=== PATIENT | female | born 1985 ===

== ENCOUNTER 2017-10-08 09:25 | Emergency (ER) | payer OTHER ==
[2017-10-08 09:33] VITALS: BMI 29.9
[2017-10-08 09:34] VITALS: TEMP 98.2
[2017-10-08 09:56] VITALS: O2SAT 100
[2017-10-08 10:57] LABS: SQUAMOUS EPITHIAL 1 /hpf (0-5); URINE BILIRUBIN NEGATIVE (NEGATIVE); URINE BLOOD MODERATE (NEGATIVE); URINE CLARITY CLEAR (Clear); URINE COLOR STRAW (YELLOW); URINE GLUCOSE (UA) NEG (Normal); URINE LEUKOCYTE ESTERASE NEG Leu/uL (Negative); URINE PROTEIN NEGATIVE (NEGATIVE); URINE UROBILINOGEN 0.2-1.0 mg/dL (0.2-1.0)
[2017-10-08] MEDS ORDERED: cefTRIAXone (Rocephin) 250 mg Inj IM ONE (11:00)
[2017-10-08] MEDS ORDERED: Azithromycin 200 mg/5 ml Susp (22.5 ml) PO STA (11:00)
--- NOTE | 2017-10-08 11:09 | ED PDOC ---
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 Also concerned for . LMP september 22, regular. Notes some mild nausea but denies back pain, fever, vaginal bleeding or vomiting/diarrhea. No DOCK ASSOCIATE care for last year+. Past Medical History Reviewed: Historical Data, Nursing Documentation, Vital Signs Vital Signs: Last Vital Signs Temp 98.2 F 10/08/17 09:52 Pulse 62 10/08/17 09:52 Resp 18 10/08/17 09:52 BP 131/73 10/08/17 09:52 Pulse Ox 100 10/08/17 09:52 - Medical History PMH: No Chronic Diseases Denies: Chronic Kidney Disease - Surgical History Surgical History: No Surg Hx - Family History Family History: States: Unknown Family Hx - Home Medications Home Medications: Ambulatory Orders Medication Instructions Recorded Nitrofurantoin Macrocrystals 100 mg PO BID #10 cap 10/08/17 [Macrobid] Phenazopyridine HCl [Pyridium] 100 mg PO BID #6 tablet 10/08/17 - Allergies Allergies/Adverse Reactions: Allergies Allergy/AdvReac Type Severity Reaction Status Date / Time No Known Allergies Allergy Verified 10/08/17 10:09 Physical Exam - Physical Exam Appears: Positive for: Well, Non-toxic Head Exam: Positive for: ATRAUMATIC Cardiovascular/Chest: Negative for: Tachycardia Respiratory: Negative for: Respiratory Distress Gastrointestinal/Abdominal: Negative for: Tenderness, Guarding Pelvic Exam: Positive for: External Exam Normal, Cervicitis, Discharge (white at cervix), Tender Uterus (minimal). Negative for: Tender W/Cervical Motion - ECG O2 Sat by Pulse Oximetry: 100 Medical Decision Making Medical Decision Making: workup for pelvic discomfort r/o , UTI, STDs, PID vs other Upreg neg Udip + blood pelvic w process tech Kate after procedure explained via earth science technical officer cultures obtained treat empirically given symptoms and discharge on exam followup cultures, abstain from sex until tests return empiric macrobid and pyridium given dysuria until culture returns Disposition - Clinical Impression Clinical Impression: Genitourinary Pain - Patient ED Disposition Is Patient to be Admitted: No Counseled Patient/Family Regarding: Studies Performed (explained in malagasy via earth science technical officer mike DAY), Diagnosis, Need For Followup, Rx Given - Disposition [facility] Disposition: Routine/Home Disposition Time: 11:15 Condition: STABLE Additional Instructions: You were checked for pelvic infections including sexually transmitted diseases chlamydia and gonorrhea. You were treated empirically. Test results will be back in 2-3 days and you will be called if positive. Followup with DOCK ASSOCIATE for further testing and evaluation. TAKE ANTIBIOTICS DIRECTED BY MOUTH. YOUR URINE WILL TURN ORANGE COLOR FOR 4- 5 DAYS DUE TO PYRIDIUM. Usted fue revisado por infecciones plvicas, incluidas las enfermedades de transmisin sexual clamidia y gonorrea. Fuiste tratado empricamente. Los resultados de la prueba volvern en 2-3 canchola y se te llamar si es positivo. Seguimiento con DOCK ASSOCIATE para ms pruebas y evaluacin. TOME ANTIBITICOS SEGN LO INDICA LA BOCA. BAUTISTA ORINA GIRAR COLOR NARANJA JN 4-5 CANCHOLA DEBIDO AL PIRIDIO. Prescriptions: Ciprofloxacin [Cipro] 500 mg PO BID #10 tab Phenazopyridine HCl [Pyridium] 100 mg PO BID #6 tablet Instructions: Vaginal Discharge in Adults, Urethritis (DC) Forms: [facility] (Libyan)
[2017-10-08] MEDS ORDERED: cefTRIAXone (Rocephin) 250 mg Inj ONE (11:31)
[2017-10-08 12:05] VITALS: BP 115/68; PULSE 60; RESP 12
== END 2017-10-08 12:07 | disposition home or self-care (01) ==
LOC: H.ER 09:25
DX: N89.8 Other specified noninflammatory disorders of vagina (principal)
CPT/HCPCS: 81003; 87070; 87086; 87491; 87591; 96372; 99285; J0696

== ENCOUNTER 2018-01-27 09:36 | Emergency (ER) | payer OTHER ==
[2018-01-27 09:45] VITALS: BMI 30.2
[2018-01-27 10:45] LABS: BASO % 0.5 % (0.0-2.0); EOS # 0.2 K/uL (0.0-0.7); EOS % 2.7 % (0.0-4.0); HEMOGLOBIN 13.9 g/dL (12.0-16.0); LYMPH # 3.5 K/uL (1.0-4.3); LYMPH % 41.2 % (20.0-40.0); MEAN CELL VOLUME 87.1 fl (81.0-99.0); MEAN CORPUSCULAR HEMOGLOBIN 30.9 pg (27.0-31.0); MEAN CORPUSCULAR HGB CONC 35.5 g/dL (33.0-37.0); MEAN PLATELET VOLUME 7.1 fl (7.2-11.7); MONO # 0.5 K/uL (0.0-0.8); NEUT # 4.2 K/uL (1.8-7.0); NEUT % 49.6 % (50.0-75.0); NRBC % 0.2 % (0.0-0.0); RBC 4.49 Mil/uL (3.80-5.20); RED CELL DISTRIBUTION WIDTH 13.2 % (11.5-14.5); WHITE BLOOD COUNT 8.5 K/uL (4.8-10.8)
[2018-01-27 10:59] LABS: ALB/GLOB RATIO 1.1 (1.0-2.1); ALBUMIN 4.4 g/dL (3.5-5.0); ALT/SGPT 22 U/L (9-52); AST/SGOT 25 U/L (14-36); BLOOD UREA NITROGEN 14 mg/dl (7-17); CALCIUM 9.5 mg/dL (8.4-10.2); GFR NON-AFRICAN AMERICAN > 60
--- NOTE | 2018-01-27 11:20 | RAD ---
Date of service: 01/27/2018 HISTORY: cp COMPARISON: No prior. TECHNIQUE: Chest PA and lateral FINDINGS: LUNGS: No active pulmonary disease. PLEURA: No significant pleural effusion identified. No pneumothorax apparent. CARDIOVASCULAR: Normal. OSSEOUS STRUCTURES: Mild thoraco lumbar spondylosis. VISUALIZED UPPER ABDOMEN: Normal. OTHER FINDINGS: None. IMPRESSION: No acute cardiopulmonary pathology appreciated.
--- NOTE | 2018-01-27 12:08 | ED PDOC ---
HPI: Chest Pain Time Seen by Provider: 01/27/18 09:40 Chief Complaint (Nursing): Chest Pain Chief Complaint (Provider): Chest Pain History Per: Patient, Telephone Solicitor ([id number] (MAULIK)) History/Exam Limitations: no limitations Onset/Duration Of Symptoms: Days Current Symptoms Are (Timing): Still Present Quality: "Pain" Additional Complaint(s): 32 year old female presents to the ER for evaluation of left sided chest pain. Reports has burning pain on her entire left arm onset for 5 days. States the pain becomes worse with movement. Yesterday, at 11pm she became nauseous and she works at night. Patient reports in [place], she was checked out for chest pain and she was advised that the chest pain resulted due to stress and was advised visit jewel stringer. Denies any follow up with jewel stringer. denies fall , vomiting, diaphoresis, diarrhea or fever. PMD: No Family Provider Past Medical History Reviewed: Historical Data, Nursing Documentation, Vital Signs Vital Signs: Last Vital Signs Temp 98.6 F 01/27/18 12:53 Pulse 55 L 01/27/18 12:53 Resp 16 01/27/18 12:53 BP 100/57 L 01/27/18 12:53 Pulse Ox 98 01/27/18 18:30 - Medical History PMH: No Chronic Diseases Denies: Chronic Kidney Disease - Surgical History Surgical History: No Surg Hx - Family History Family History: States: Unknown Family Hx - Social History Current smoker - smoking cessation education provided: No Alcohol: None Drugs: Denies - Home Medications Home Medications: Ambulatory Orders Medication Instructions Recorded Nitrofurantoin Macrocrystals 100 mg PO BID #10 cap 10/08/17 [Macrobid] Phenazopyridine HCl [Pyridium] 100 mg PO BID #6 tablet 10/08/17 - Allergies Allergies/Adverse Reactions: Allergies Allergy/AdvReac Type Severity Reaction Status Date / Time No Known Allergies Allergy Verified 01/27/18 09:49 TARYN Risk Score for UA/NSTEMI - TARYN Risk Score Age > 64: NO 3 or more CAD Risk Factors: NO Known CAD (Stenosis greater than 50%): NO Aspirin use in past 7 days: NO Severe Angina: NO EKG ST changes greater than 0.5mm: NO Positive Cardiac Marker: NO TARYN Score: 0 Risk %: 5% Wells Criteria for PE - Wells Criteria for Pulmonary Embolism Clinical Signs and Symptoms of DVT: No P.E is #1 Diagnosis, or Equally Likely: No Heart Rate >100: No Immobilization at least 3 days;Surgery previous 4 weeks: No Previous, objectively diagnosed PE or DVT: No Hemoptysis: No Malignancy w/treatment within 6 months, or palliative: No Total Score: 0 Review of Systems ROS Statement: Except As Marked, All Systems Reviewed And Found Negative Constitutional: Positive for: Other (tired). Negative for: Fever Cardiovascular: Positive for: Chest Pain Gastrointestinal: Positive for: Nausea. Negative for: Vomiting, Diarrhea Musculoskeletal: Positive for: Arm Pain (left) Psych: Negative for: Suicidal ideation (homicidal ideation) Physical Exam - Reviewed Nursing Documentation Reviewed: Yes Vital Signs Reviewed: Yes - Physical Exam Appears: Positive for: Non-toxic, No Acute Distress Head Exam: Positive for: ATRAUMATIC, NORMAL INSPECTION, NORMOCEPHALIC Skin: Positive for: Normal Color, Warm, Dry Eye Exam: Positive for: EOMI, Normal appearance, PERRL ENT: Positive for: Normal ENT Inspection Neck: Positive for: Normal, Painless ROM, Supple. Negative for: Decreased ROM Cardiovascular/Chest: Positive for: Regular Rate, Rhythm. Negative for: Murmur Respiratory: Positive for: Normal Breath Sounds. Negative for: Decreased Breath Sounds, Wheezing, Respiratory Distress Gastrointestinal/Abdominal: Positive for: Normal Exam, Soft. Negative for: Tenderness, Guarding, Rebound Back: Positive for: Normal Inspection Extremity: Positive for: Normal ROM. Negative for: Tenderness, Pedal Edema, Deformity Neurologic/Psych: Positive for: Alert, Oriented (x3). Negative for: Motor/ Sensory Deficits - Laboratory Results Result Diagrams: 01/27/18 10:35 01/27/18 10:35 - ECG O2 Sat by Pulse Oximetry: 98 (RA) Pulse Ox Interpretation: Normal Medical Decision Making Medical Decision Making: Time: 1035 Initial Impression: chest pain rule out cardiac etiology rule out pneumonia rule out muscular pain Initial Plan: --CMP --Troponin I --CBC w/ Differential --Chest Two Views [RAD] --Reevaluation Time: 1119 TECHNIQUE: Chest PA and lateral FINDINGS: LUNGS: No active pulmonary disease. PLEURA: No significant pleural effusion identified. No pneumothorax apparent. CARDIOVASCULAR: Normal. OSSEOUS STRUCTURES: Mild thoraco lumbar spondylosis. VISUALIZED UPPER ABDOMEN: Normal. OTHER FINDINGS: None. IMPRESSION: No acute cardiopulmonary pathology appreciated. pt has normal EKG (slightly bradycardic, however when i repeated pulse it was 62 ), normal labs, normal cxr and upon reevaluation pt sleeping comfortably. alert and oriented. patent airway. stable vitals. pt given toradol w some improvement. pt instructed that stable for dc and follow up w pcp for further workup/eval in 1-2 days. pt referred to clinc and counts include [facility] beds at the [facility] for follow up. Upon provider evaluation patient is medically stable, and requires no further treatment in the ED at this time. Patient will be discharged. Counseling was provided and all questions were answered regarding diagnosis and need for follow up at clinic. There is agreement to discharge plan. Return if symptoms persist or worsen. Scribe Attestation: Documented by Sonia Jones, acting as a scribe for Vania Bullock MD Provider Scribe Attestation: All medical record entries made by the Scribe were at my direction and personally dictated by me. I have reviewed the chart and agree that the record accurately reflects my personal performance of the history, physical exam, medical decision making, and the department course for this patient. I have also personally directed, reviewed, and agree with the discharge instructions and disposition. Disposition - Clinical Impression Clinical Impression: Chest wall pain - Patient ED Disposition Is Patient to be Admitted: No Counseled Patient/Family Regarding: Studies Performed, Diagnosis, Need For Followup - Disposition Referrals: [facility] [Outside] [facility] [Outside] Disposition: Routine/Home Disposition Time: 12:30 Condition: IMPROVED Additional Instructions: follow up in the clinic in 1-2 days for further evaluation return to the ED with any worsening or concerning symptoms Instructions: Chest Pain That Is Not Caused by the Heart (DC) Forms: [employer] (Chinese) Print Language: [place]
[2018-01-27 12:56] VITALS: BP 100/57; PULSE 55; RESP 16; TEMP 98.6
[2018-01-27 18:28] VITALS: O2SAT 98
== END 2018-01-27 12:53 | disposition home or self-care (01) ==
LOC: H.ER 09:36
DX: R07.89 Other chest pain (principal)
CPT/HCPCS: 71046; 80053; 81025; 84484; 85025; 99285; J1885

== ENCOUNTER 2018-06-09 08:04 | Emergency (ER) | payer OTHER ==
[2018-06-09 08:15] VITALS: BMI 29.0
--- NOTE | 2018-06-09 10:52 | ED PDOC ---
HPI: Headache Time Seen by Provider: 06/09/18 08:54 Chief Complaint (Nursing): Headache Chief Complaint (Provider): GONZALEZ History Per: Patient Additional Complaint(s): Pt reports GONZALEZ to superior head X 6 days, constant, no relief with Advil at home. Denies fever, visual changes, nausea, vomiting. Past Medical History Reviewed: Nursing Documentation, Vital Signs Vital Signs: Last Vital Signs Temp 98.1 F 06/09/18 08:15 Pulse 82 06/09/18 08:15 Resp 20 06/09/18 08:15 BP 109/67 06/09/18 08:15 Pulse Ox 100 06/09/18 08:15 - Medical History PMH: No Chronic Diseases Denies: Chronic Kidney Disease - Family History Family History: States: Unknown Family Hx - Social History Current smoker - smoking cessation education provided: No Alcohol: None - Home Medications Home Medications: Ambulatory Orders Medication Instructions Recorded Nitrofurantoin Macrocrystals 100 mg PO BID #10 cap 10/08/17 [Macrobid] Phenazopyridine HCl [Pyridium] 100 mg PO BID #6 tablet 10/08/17 Naproxen [Naprosyn] 500 mg PO BID PRN #15 tablet 06/09/18 - Allergies Allergies/Adverse Reactions: Allergies Allergy/AdvReac Type Severity Reaction Status Date / Time No Known Allergies Allergy Verified 06/09/18 08:45 Review of Systems Constitutional: Negative for: Fever, Chills Eyes: Negative for: Vision Change Respiratory: Negative for: Shortness of Breath Gastrointestinal: Negative for: Nausea, Vomiting Neurological: Positive for: Headache. Negative for: Weakness, Confusion, Seizures, Altered Mental Status, Dizziness Physical Exam - Reviewed Nursing Documentation Reviewed: Yes Vital Signs Reviewed: Yes - Physical Exam Appears: Positive for: Well, No Acute Distress Head Exam: Positive for: ATRAUMATIC, NORMAL INSPECTION Skin: Positive for: Normal Color, Warm, Dry Eye Exam: Positive for: Normal appearance, EOMI, PERRL Neck: Positive for: Normal, Painless ROM, Supple Cardiovascular/Chest: Positive for: Regular Rate, Rhythm Respiratory: Positive for: Normal Breath Sounds Neurologic/Psych: Positive for: Alert, lacquer shader II-XII, Oriented. Negative for: Motor/Sensory Deficits, Facial Droop - ECG O2 Sat by Pulse Oximetry: 100 Medical Decision Making Medical Decision Makin yo female with GONZALEZ. - u preg - CT head - pain med Accession No. : [id number] Patient Name / ID : ARMAAN DWYER / [id number] Exam Date : 06/09/2018 11:24:56 ( Approved ) Study Comment : Sex / Age : F / 33Y Creator : Heriberto Burns MD Dictator : Heriberto Burns MD Glassware Maker Demonstrator : Concrete Technician : Heriberto Burns MD Approver2 : Report Date : 06/09/2018 11:56:19 My Comment : Date of service: 06/09/2018 PROCEDURE: CT HEAD WITHOUT CONTRAST. HISTORY: GONZALEZ COMPARISON: None available. TECHNIQUE: Axial computed tomography images were obtained through the head/brain without intravenous contrast. Radiation dose: Total exam DLP = 729.69 mGy-cm. This CT exam was performed using one or more of the following dose reduction techniques: Automated exposure control, adjustment of the mA and/or kV according to patient size, and/or use of iterative reconstruction technique. FINDINGS: HEMORRHAGE: No intracranial hemorrhage. BRAIN: No mass effect or edema. No atrophy or chronic microvascular ischemic changes. VENTRICLES: Unremarkable. No hydrocephalus. CALVARIUM: Unremarkable. PARANASAL SINUSES: Unremarkable as visualized. No significant inflammatory changes. MASTOID AIR CELLS: Unremarkable as visualized. No inflammatory changes. OTHER FINDINGS: None. IMPRESSION: No acute intracranial pathology. Disposition - Clinical Impression Clinical Impression: Headache - Disposition Referrals: [facility] [Outside] Disposition: Routine/Home Disposition Time: 13:59 Condition: STABLE Prescriptions: Naproxen [Naprosyn] 500 mg PO BID PRN #15 tablet PRN Reason: Pain, Moderate (4-7) Instructions: Headache, Adult Forms: [facility] (Bhutanese) Print Language: SYRIAC
--- NOTE | 2018-06-09 12:00 | CT ---
Date of service: 06/09/2018 PROCEDURE: CT HEAD WITHOUT CONTRAST. HISTORY: GONZALEZ COMPARISON: None available. TECHNIQUE: Axial computed tomography images were obtained through the head/brain without intravenous contrast. Radiation dose: Total exam DLP = 729.69 mGy-cm. This CT exam was performed using one or more of the following dose reduction techniques: Automated exposure control, adjustment of the mA and/or kV according to patient size, and/or use of iterative reconstruction technique. FINDINGS: HEMORRHAGE: No intracranial hemorrhage. BRAIN: No mass effect or edema. No atrophy or chronic microvascular ischemic changes. VENTRICLES: Unremarkable. No hydrocephalus. CALVARIUM: Unremarkable. PARANASAL SINUSES: Unremarkable as visualized. No significant inflammatory changes. MASTOID AIR CELLS: Unremarkable as visualized. No inflammatory changes. OTHER FINDINGS: None. IMPRESSION: No acute intracranial pathology.
[2018-06-09 14:11] VITALS: BP 125/80; PULSE 75; RESP 16; TEMP 98.1
[2018-06-14 10:28] VITALS: O2SAT 100
== END 2018-06-09 14:11 | disposition home or self-care (01) ==
LOC: H.ER 08:04
DX: R51 Headache (principal)